=== PATIENT | male | born 1980 | race African-American/Black ===

== ENCOUNTER 2017-03-19 04:06 | Emergency (ER) | payer BC ==
[2017-03-19] MEDS ORDERED: KETOROLAC TROMETHAMINE INJ/PF 30 MG/1 ML SDV IV ONE (04:54)
[2017-03-19] MEDS ORDERED: ONDANSETRON HCL INJ/PF 4 MG/2 ML SDV IV ONE (04:54)
--- NOTE | 2017-03-19 04:56 | ER Document Report ---
ED Medical Screen (RME) - General Chief Complaint: Abdominal Pain Stated Complaint: ABDOMINAL PAIN Time Seen by Provider: 03/19/17 04:50 Notes: Patient is a 36-year-old male that comes emergency department for chief complaint of abdominal pain that started tonight, it is constant, in his mid upper abdomen. He denies nausea or vomiting, he denies flank pain, denies injury, he denies fever or chills. He denies any past medical history including surgeries, medications, or illnesses. TRAVEL OUTSIDE OF THE [place] IN LAST 30 DAYS: No - Related Data Allergies/Adverse Reactions: No Known Allergies Allergy (Verified 07/14/12 12:46) Past Medical History Renal/ Medical History: Denies: Hx Peritoneal Dialysis Past Surgical History: Reports: Hx Orthopedic Surgery - Immunizations Hx Diphtheria, Pertussis, Tetanus Vaccination: Yes Physical Exam - Vital signs Vitals: Temp Pulse Resp BP Pulse Ox 98.6 F 74 18 141/96 H 98 03/19/17 04:08 03/19/17 04:08 03/19/17 04:08 03/19/17 04:08 03/19/17 04:08 - General General appearance: Other - Patient appears mildly uncomfortable - Abdominal Tenderness: Tender - Tender mainly in the right upper quadrant and epigastric area, lower abdomen soft and benign Course - Vital Signs Vital signs: Temp Pulse Resp BP Pulse Ox 98.6 F 74 18 141/96 H 98 03/19/17 04:08 03/19/17 04:08 03/19/17 04:08 03/19/17 04:08 03/19/17 04:08
[2017-03-19 05:41] LABS: ABSOLUTE LYMPHOCYTES (AUTO) 2.5 10^3/uL (0.5-4.7); ABSOLUTE MONOCYTES (AUTO) 0.6 10^3/uL (0.1-1.4); BASOPHILS % (AUTO) 0.2 % (0-2); EOSINOPHILS % (AUTO) 0.5 % (0-6); HEMATOCRIT 39.9 % (37.9-51.0); HEMOGLOBIN 12.9 g/dL (13.5-17.0); HGB HCT DIFFERENCE -1.2; LYMPHOCYTES % (AUTO) 30.8 % (13-45); MEAN CORPUSCULAR HEMOGLOBIN 28.2 pg (27.0-33.4); MEAN CORPUSCULAR HGB CONC 32.4 g/dL (32.0-36.0); MEAN CORPUSCULAR VOLUME 87 fl (80-97); MONOCYTES % (AUTO) 7.3 % (3-13); RED BLOOD COUNT 4.59 10^6/uL (4.35-5.55); RED CELL DISTRIBUTION WIDTH 13.8 % (11.5-14.0); SEGMENTED NEUTROPHILS % (AUTO) 61.2 % (42-78); WHITE BLOOD COUNT 8.2 10^3/uL (4.0-10.5)
[2017-03-19 05:51] LABS: ALANINE AMINOTRANSFERASE 35 U/L (21-72); ALBUMIN 4.1 g/dL (3.5-5.0); ALKALINE PHOSPHATASE 57 U/L (38-126); ANION GAP 11 (5-19); ASPARTATE AMINO TRANSFERASE 24 U/L (17-59); BILIRUBIN,DIRECT 0.3 mg/dL (0.0-0.4); BILIRUBIN,TOTAL 0.5 mg/dL (0.2-1.3); BLOOD UREA NITROGEN 16 mg/dL (7-20); CALCIUM 9.1 mg/dL (8.4-10.2); CARBON DIOXIDE 25 mmol/L (22-30); CHLORIDE 106 mmol/L (98-107); CREATININE RESULT 0.96 mg/dL (0.52-1.25); GLUCOSE 101 mg/dL (75-110); LIPASE 54.4 U/L (23-300); SODIUM 142.4 mmol/L (137-145); TOTAL PROTEIN 7.2 g/dL (6.3-8.2)
[2017-03-19] MEDS ORDERED: NORMAL SALINE 1000 ML 1,000 ML IV ONE ×2 (06:21→06:22)
[2017-03-19] MEDS ORDERED: LIDOCAINE 2% VISCOUS SOLN 20 ML UDCUP PO ONE (07:18)
[2017-03-19] MEDS ORDERED: METOCLOPRAMIDE HCL ORAL SOLN 10 MG/10 ML UDCUP PO ONE (07:18)
[2017-03-19] MEDS ORDERED: MAG HYDROX/AL HYDROX/SIMETH SUSP 30 ML UDCUP PO ONE (07:18)
--- NOTE | 2017-03-19 07:30 | RADIOLOGY REPORT (SQ) ---
EXAM DESCRIPTION: U/S ABDOMEN LIMITED W/O DOP COMPLETED DATE/TIME: 03/19/2017 7:07 am REASON FOR STUDY: epigastric and RUQ pain COMPARISON: 06/23/2008 TECHNIQUE: Dynamic and static grayscale images acquired of the abdomen and recorded on PACS. Edwardo bee selected color Doppler and spectral images recorded. LIMITATIONS: None. FINDINGS: PANCREAS: No masses. Visualized pancreatic duct normal caliber. Obscured tail. LIVER: No masses. Moderate hepatic steatosis. LIVER VASCULATURE: Normal directional flow of the main portal vein and hepatic veins. GALLBLADDER: No stones. Normal wall thickness. No pericholecystic fluid. ULTRASOUND-DETECTED SOUSA'S SIGN: Negative. INTRAHEPATIC DUCTS AND COMMON DUCT: CBD and intrahepatic ducts normal caliber. No filling defects. INFERIOR VENA CAVA: Normal flow. AORTA: No aneurysm. RIGHT KIDNEY: Indeterminate, possible 3.2 cm rounded, hypoechoic, avascular lesion of the right mid kidney ; multiphase contrast CT of the kidneys recommended. PERITONEAL AND RIGHT PLEURAL SPACE: No ascites or effusions. OTHER: No other significant findings. IMPRESSION: Possible 3.2 cm right renal lesion; multiphase contrast CT of the kidneys recommended. Otherwise, unremarkable RIGHT UPPER QUADRANT ULTRASOUND. TECHNICAL DOCUMENTATION: JOB ID: [id number] [employer]- All Rights Reserved
--- NOTE | 2017-03-19 08:58 | ER Document Report ---
ED General - General Chief Complaint: Abdominal Pain Stated Complaint: ABDOMINAL PAIN Time Seen by Provider: 03/19/17 04:50 TRAVEL OUTSIDE OF THE [place] IN LAST 30 DAYS: No - HPI Patient complains to provider of: Mid abdominal pain Notes: Patient coming in for midabdominal pain starting just prior to arrival. Much of the HPI now is limited as that this chart was lost due to an error in her electronic medical record keeping system. - Related Data Allergies/Adverse Reactions: No Known Allergies Allergy (Verified 07/14/12 12:46) Past Medical History - Social History Smoking Status: Unknown if Ever Smoked Family History: Reviewed & Not Pertinent Patient has suicidal ideation: No Patient has homicidal ideation: No Renal/ Medical History: Denies: Hx Peritoneal Dialysis Past Surgical History: Reports: Hx Orthopedic Surgery - Immunizations Hx Diphtheria, Pertussis, Tetanus Vaccination: Yes Review of Systems - Review of Systems Constitutional: No symptoms reported EENT: No symptoms reported Cardiovascular: No symptoms reported Respiratory: No symptoms reported Gastrointestinal: Abdominal pain Genitourinary: No symptoms reported Male Genitourinary: No symptoms reported Musculoskeletal: No symptoms reported Skin: No symptoms reported Hematologic/Lymphatic: No symptoms reported Neurological/Psychological: No symptoms reported Physical Exam - Vital signs Vitals: Temp Pulse Resp BP Pulse Ox 98.6 F 74 18 141/96 H 98 03/19/17 04:08 03/19/17 04:08 03/19/17 04:08 03/19/17 04:08 03/19/17 04:08 Interpretation: Normal - General General appearance: Appears well, Alert - HEENT Head: Normocephalic, Atraumatic Eyes: Normal Pupils: PERRL - Respiratory Respiratory status: No respiratory distress Chest status: Nontender Breath sounds: Normal Chest palpation: Normal - Cardiovascular Rhythm: Regular Heart sounds: Normal auscultation Murmur: No - Abdominal Inspection: Normal Distension: No distension Bowel sounds: Normal Tenderness: Nontender Organomegaly: No organomegaly - Back Back: Normal, Nontender - Extremities General upper extremity: Normal inspection, Nontender, Normal color, Normal ROM , Normal temperature General lower extremity: Normal inspection, Nontender, Normal color, Normal ROM , Normal temperature, Normal weight bearing. No: Seble's sign - Neurological Neuro grossly intact: Yes Cognition: Normal Orientation: AAOx4 Jyothi Coma Scale Eye Opening: Spontaneous Kanaranzi Coma Scale Verbal: Oriented Kanaranzi Coma Scale Motor: Obeys Commands Jyothi Coma Scale Total: 15 Speech: Normal Motor strength normal: LUE, RUE, LLE, RLE Sensory: Normal - Psychological Associated symptoms: Normal affect, Normal mood - Skin Skin Temperature: Warm Skin Moisture: Dry Skin Color: Normal Course - Re-evaluation Re-evalutation: 03/22/17 20:09 Lab results were reviewed with the patient no signs of significant pathology patient does have a slight renal mass that will need to be followed up as outpatient. Patient given pain medication for home The patient presents with abdominal pain without signs of peritonitis or other life-threatening or serious etiology. The patient appears stable for discharge and has been instructed to return immediately if the symptoms worsen in any way, or in 8- 12hr if not improved for re-evaluation. The patient has been instructed to return if the symptoms worsen or change in any way. - Vital Signs Vital signs: Temp Pulse Resp BP Pulse Ox 97.7 F 77 18 120/64 97 03/19/17 09:13 03/19/17 09:13 03/19/17 09:13 03/19/17 09:13 03/19/17 09:13 - Laboratory Result Diagrams: 03/19/17 05:22 03/19/17 05:22 Laboratory results interpreted by me: 03/19/17 05:22 Hgb 12.9 L Discharge - Discharge Clinical Impression: Right renal mass Abdominal pain Qualifiers: Abdominal location: unspecified location Qualified Code(s): R10.9 - Unspecified abdominal pain Condition: Good Disposition: HOME, SELF-CARE Instructions: Abdominal Pain ([facility]), Gastritis ([facility]), Constipation ([facility]), Growth or Mass, Pending Workup ([facility]) Additional Instructions: Follow-up with your primary care physician. Your ultrasound does not show any significant gallbladder disease however there is a mass that is located in her kidney. A lot of times will reduce these tests in the ER we will find masses and nodules that are very nondescriptive further testing will need to be performed to evaluate this mass however this can be done as an outpatient. Do believe that your abdominal pain possibly related to gastritis and possibly related to constipation. Take MiraLAX as prescribed for constipation. Take the Ultram and the Zantac prescribed for pain control. Prescriptions: Polyethylene Glycol 3350 [Miralax Powder 17 gm/Packet] 1 packet PO DAILY #1 pkg Ranitidine HCl [Zantac 75 mg Tablet] 75 mg PO BID #30 tablet Tramadol HCl [Ultram 50 mg Tablet] 50 mg PO ASDIR PRN #30 tablet PRN Reason: Forms: Return to Work
[2017-03-19 09:14] VITALS: BP 120/64
== END 2017-03-19 09:14 | disposition home or self-care (01) ==
LOC: ER 04:06
DX: N28.89 Other specified disorders of kidney and ureter (principal); R10.9 Unspecified abdominal pain
CPT/HCPCS: 99284; 36415; 83690; 85025; 80053; 76705; J3490; J1885; J2405; J7030

== ENCOUNTER 2017-10-28 12:40 | Observation (INO) | payer BC ==
[~2017-10-28 12:40] MED LIST: GLYCOPYRROLATE INJ 0.4 MG/2 ML VIAL ONE; NEOSTIGMINE METHYLSULFATE 10 MG/10 ML VIAL ONE; SUCCINYLCHOLINE CHLORIDE INJ 200 MG/10 ML VIAL ONE; VECURONIUM BROMIDE INJ 10 MG VIAL IV ONE
--- NOTE | 2017-10-28 14:05 | ER Document Report ---
ED Medical Screen (RME) - General Chief Complaint: Abdominal Pain Stated Complaint: ABDOMINAL PAIN Time Seen by Provider: 10/28/17 14:04 Notes: Patient states he was having some right-sided abdominal pain she went to see his primary care physician at the end of last week. At that time a CT scan was done. He states he received a phone call today that stated the CT scan shows appendicitis. He states that he has not had any significant pain for 3 days. He states he had a normal breakfast this morning. On exam however he still does have right lower quadrant tenderness to palpation. The CT report states the patient has enlargement of a retrocecal appendix with some stranding suggestive of appendicitis. TRAVEL OUTSIDE OF THE [place] IN LAST 30 DAYS: No - Related Data Allergies/Adverse Reactions: No Known Allergies Allergy (Verified 10/28/17 12:42) Past Medical History - Social History Chew tobacco use (# tins/day): No Frequency of alcohol use: Rare Drug Abuse: None Renal/ Medical History: Denies: Hx Peritoneal Dialysis Past Surgical History: Reports: Hx Orthopedic Surgery - Immunizations Hx Diphtheria, Pertussis, Tetanus Vaccination: Yes Physical Exam - Vital signs Vitals: Temp Pulse Resp BP Pulse Ox 98.4 F 92 18 157/93 H 97 10/28/17 12:56 10/28/17 12:56 10/28/17 12:56 10/28/17 12:56 10/28/17 12:56 Course - Vital Signs Vital signs: Temp Pulse Resp BP Pulse Ox 98.4 F 92 18 157/93 H 97 10/28/17 12:56 10/28/17 12:56 10/28/17 12:56 10/28/17 12:56 10/28/17 12:56
[2017-10-28 14:33] LABS: ABSOLUTE BASOPHILS # (AUTO) 0.1 10^3/uL (0.0-0.2); ABSOLUTE EOSINOPHILS # (AUTO) 0.1 10^3/uL (0.0-0.6); ABSOLUTE LYMPHOCYTES (AUTO) 2.8 10^3/uL (0.5-4.7); ABSOLUTE MONOCYTES (AUTO) 0.5 10^3/uL (0.1-1.4); ABSOLUTE NEUT (AUTO) 3.1 10^3/uL (1.7-8.2); BASOPHILS % (AUTO) 0.9 % (0-2); HEMATOCRIT 40.5 % (37.9-51.0); HEMOGLOBIN 13.4 g/dL (13.5-17.0); LYMPHOCYTES % (AUTO) 43.6 % (13-45); MEAN CORPUSCULAR HEMOGLOBIN 28.2 pg (27.0-33.4); MEAN CORPUSCULAR HGB CONC 33.2 g/dL (32.0-36.0); MEAN CORPUSCULAR VOLUME 85 fl (80-97); MONOCYTES % (AUTO) 7.4 % (3-13); PLATELET COUNT 301 10^3/uL (150-450); RED BLOOD COUNT 4.76 10^6/uL (4.35-5.55); RED CELL DISTRIBUTION WIDTH 13.5 % (11.5-14.0); SEGMENTED NEUTROPHILS % (AUTO) 47.1 % (42-78); TOTAL CELLS COUNTED % (AUTO) 100 %; WHITE BLOOD COUNT 6.5 10^3/uL (4.0-10.5)
[2017-10-28 14:49] LABS: AMORPHOUS SEDIMENT,URINE 1+ /HPF; APPEARANCE,URINE CLOUDY; BILIRUBIN,URINE NEGATIVE (NEGATIVE); COLOR,URINE YELLOW; GLUCOSE, URINE NEGATIVE (NEGATIVE); KETONES,URINE NEGATIVE (NEGATIVE); LEUKOCYTE ESTERASE,URINE NEGATIVE (NEGATIVE); NITRITE,URINE NEGATIVE (NEGATIVE); PROTEIN,URINE NEGATIVE (NEGATIVE); URINE SPECIFIC GRAVITY 1.042; UROBILINOGEN,URINE NEGATIVE mg/dL (<2.0)
--- NOTE | 2017-10-28 14:50 | ER Document Report ---
ED General - General Chief Complaint: Abdominal Pain Stated Complaint: ABDOMINAL PAIN Time Seen by Provider: 10/28/17 14:04 Mode of Arrival: Ambulatory Information source: Patient Notes: 37-year-old male presents with complaints of right lower quadrant abdominal pain of 3 day duration. Patient was seen at primary care office 3 days prior they offered a CT at that time he deferred. Patient went back today and was noted to have continued pain CT was performed and a diagnosis of acute appendicitis retrocecal was noted by read. Patient was sent in to be evaluated. Patient notes his pain has been waxing and waning TRAVEL OUTSIDE OF THE [place] IN LAST 30 DAYS: No - HPI Onset: Other Onset/Duration: Persistent, Waxing and waning Quality of pain: Sharp Severity: Mild Pain Level: 1 Associated symptoms: Nausea Exacerbated by: Denies Relieved by: Denies Similar symptoms previously: Yes Recently seen / treated by doctor: Yes - Related Data Allergies/Adverse Reactions: No Known Allergies Allergy (Verified 10/28/17 12:42) Past Medical History - Social History Smoking Status: Former Smoker Cigarette use (# per day): No Chew tobacco use (# tins/day): No Smoking Education Provided: No Frequency of alcohol use: Rare Drug Abuse: None Family History: Reviewed & Not Pertinent Patient has suicidal ideation: No Patient has homicidal ideation: No Renal/ Medical History: Denies: Hx Peritoneal Dialysis Past Surgical History: Reports: Hx Orthopedic Surgery - Immunizations Hx Diphtheria, Pertussis, Tetanus Vaccination: Yes Review of Systems - Review of Systems Notes: REVIEW OF SYSTEMS: CONSTITUTIONAL : Denies fever, chills, or sweats. Denies recent illness. EENT: Denies eye, ear, throat, or mouth pain or symptoms. Denies nasal or sinus congestion or discharge. Denies throat, tongue, or mouth swelling or difficulty swallowing. CARDIOVASCULAR: Denies chest pain. Denies palpitations or racing or irregular heart beat. Denies ankle edema. RESPIRATORY: Denies cough, cold, or chest congestion. Denies shortness of breath, difficulty breathing, or wheezing. GASTROINTESTINAL: Admits to right lower quadrant abdominal pain. GENITOURINARY: Denies difficulty urinating, painful urination, burning, frequency, blood in urine, or discharge. MUSCULOSKELETAL: Denies back or neck pain or stiffness. Denies joint pain or swelling. SKIN: Denies rash, lesions or sores. HEMATOLOGIC : Denies easy bruising or bleeding. LYMPHATIC: Denies swollen, enlarged glands. NEUROLOGICAL: Denies confusion or altered mental status. Denies passing out or loss of consciousness. Denies dizziness or lightheadedness. Denies headache. Denies weakness or paralysis or loss of use of either side. Denies problems with gait or speech. Denies sensory loss, numbness, or tingling. Denies seizures. PSYCHIATRIC: Denies anxiety or stress. Denies depression, suicidal ideation, or homicidal ideation. ALL OTHER SYSTEMS REVIEWED AND NEGATIVE. Dictation was performed using [employer] recognition software PHYSICAL EXAMINATION: GENERAL: Well-appearing, well-nourished and in no acute distress. HEAD: Atraumatic, normocephalic. EYES: Pupils equal round and reactive to light, extraocular movements intact, sclera anicteric, conjunctiva are normal. ENT: Nares patent, oropharynx clear without exudates. Moist mucous membranes. NECK: Normal range of motion, supple without lymphadenopathy LUNGS: Breath sounds clear to auscultation bilaterally and equal. No wheezes rales or rhonchi. HEART: Regular rate and rhythm without murmurs ABDOMEN: Soft, tender in the right lower quadrant with mild guarding Musculoskeletal: Normal range of motion, no pitting or edema. No cyanosis. NEUROLOGICAL: Cranial nerves grossly intact. Normal speech, normal gait. Normal sensory, motor exams PSYCH: Normal mood, normal affect. SKIN: Warm, Dry, normal turgor, no rashes or lesions noted. Physical Exam - Vital signs Vitals: Temp Pulse Resp BP Pulse Ox 98.4 F 92 18 157/93 H 97 10/28/17 12:56 10/28/17 12:56 10/28/17 12:56 10/28/17 12:56 10/28/17 12:56 Course - Re-evaluation Re-evalutation: 10/28/17 15:16 Patient's presentation and imaging was concerning for appendicitis, his pain is a little bit higher than I would expect but given that it is retrocecal this may be the reasoning for this. He does not have an elevated white count, he is afebrile at this time, his pain has been consistent and worsening therefore I do have high suspicion for appendicitis. Dr. Wade was consulted who will take the patient to the OR - Vital Signs Vital signs: Temp Pulse Resp BP Pulse Ox 98.4 F 92 18 157/93 H 97 10/28/17 12:56 10/28/17 12:56 10/28/17 12:56 10/28/17 12:56 10/28/17 12:56 - Laboratory Result Diagrams: 10/28/17 14:19 10/28/17 14:19 Laboratory results interpreted by me: 10/28/17 10/28/17 14:19 14:19 Hgb 13.4 L ALT 97 H - Diagnostic Test Radiology reviewed: Reports reviewed - On the report has been reviewed no imaging is noted Discharge - Discharge Clinical Impression: Appendicitis Qualifiers: Appendicitis type: acute appendicitis Acute appendicitis type: with localized peritonitis Qualified Code(s): K35.3 - Acute appendicitis with localized peritonitis Abdominal pain Qualifiers: Abdominal location: right lower quadrant Qualified Code(s): R10.31 - Right lower quadrant pain Condition: Stable Disposition: ADMITTED INPATIENT Admitting Provider: Surgicalist Unit Admitted: Surgical Floor
[2017-10-28 14:59] LABS: ALANINE AMINOTRANSFERASE 97 U/L (21-72); ALBUMIN 4.3 g/dL (3.5-5.0); ALKALINE PHOSPHATASE 74 U/L (38-126); ANION GAP 10 (5-19); ASPARTATE AMINO TRANSFERASE 50 U/L (17-59); BILIRUBIN,DIRECT 0.4 mg/dL (0.0-0.4); BILIRUBIN,TOTAL 0.5 mg/dL (0.2-1.3); BLOOD UREA NITROGEN 17 mg/dL (7-20); CALCIUM 10.2 mg/dL (8.4-10.2); CARBON DIOXIDE 29 mmol/L (22-30); CHLORIDE 104 mmol/L (98-107); GLUCOSE 83 mg/dL (75-110); POTASSIUM 4.3 mmol/L (3.6-5.0); SODIUM 143.4 mmol/L (137-145); TOTAL PROTEIN 7.5 g/dL (6.3-8.2)
[2017-10-28] MEDS ORDERED: NORMAL SALINE 1000 ML 1,000 ML IV ONE (15:15)
[2017-10-28] MEDS ORDERED: FENTANYL CITRATE INJ/PF 100 MCG/2 ML AMPUL ONE ×3 (15:35→17:54)
[2017-10-28] MEDS ORDERED: LIDOCAINE 2% INJ-PF (20 MG/ML) 10 ML AMPUL ONE (15:35)
[2017-10-28] MEDS ORDERED: DEXAMETHASONE SOD PHOSPHATE INJ 4 MG/1 ML VIAL ONE (15:36)
[2017-10-28] MEDS ORDERED: MIDAZOLAM 2 MG/2 ML INJ ONE (15:36)
[2017-10-28] MEDS ORDERED: ONDANSETRON HCL INJ/PF 4 MG/2 ML SDV ONE (15:36)
[2017-10-28] MEDS ORDERED: PROPOFOL INJ 200 MG/20 ML VIAL IV ONE (15:36)
[2017-10-28] MEDS ORDERED: ACETAMINOPHEN 100 ML IV ONE (15:41)
[2017-10-28] MEDS ORDERED: BUPIVACAINE HCL 0.25 % INJ/PF (2.5 MG/1 ML) 30 ML VIAL ONE (15:54)
[2017-10-28] MEDS ORDERED: AMPICILLIN SOD/SULBACTAM 1.5 GM VIAL ONE (16:12)
--- NOTE | 2017-10-28 16:24 | PDOC H&P ---
History of Present Illness Admission Date/PCP: 10/28/17 14:56 CRISTIAN ENNIS, PROOF SORTER-C History of Present Illness: FLORENCE PEÑA is a 37 year old male Seen via the emergency department this morning for acute appendicitis. According the patient he has had approximately a week and a half history of abdominal pain mostly right sided localized to the back. He was seen in emergency department at [facility] on 10/17/2017. He had an area of heterogeneity of the mid pole of the right kidney. Follow-up was recommended. She continued to have abdominal pain was seen last week at [facility] where he was found to have persisting abdominal tenderness. He had a CT scan of the abdomen and pelvis performed on Saturday which was interpreted having findings consistent with a retrocecal appendicitis. The patient was contacted today on an outpatient basis the findings and sent to the emergency department. According the patient he denies nausea vomiting or anorexia. He actually had breakfast this morning. He denies dysuria. Patient denies history of trauma or history of gastrointestinal problems Past Medical History Cardiac Medical History: Reports: Hypertension, Other - Anemia Past Surgical History Past Surgical History: Reports: Orthopedic Surgery Social History Smoking Status: Former Smoker Past Social History Note: Remote history of heavy smoking Family History Family History: Reviewed & Not Pertinent Parental Family History Reviewed: Yes Children Family History Reviewed: Yes Sibling(s) Family History Reviewed.: Yes Medication/Allergy Home Medications: No Home Medications 10/28/17 Allergies/Adverse Reactions: No Known Allergies Allergy (Verified 10/28/17 12:42) Review of Systems Constitutional: ABSENT: chills, fever(s), headache(s), weight gain, weight loss Eyes: ABSENT: visual disturbances Ears: ABSENT: hearing changes Cardiovascular: PRESENT: as per HPI. ABSENT: chest pain, dyspnea on exertion, edema, orthropnea, palpitations Respiratory: ABSENT: cough, hemoptysis Genitourinary: ABSENT: dysuria, hematuria Musculoskeletal: ABSENT: joint swelling Physical Exam Vital Signs: Temp Pulse Resp BP Pulse Ox 98.4 F 92 18 157/93 H 97 10/28/17 12:56 10/28/17 12:56 10/28/17 12:56 10/28/17 12:56 10/28/17 12:56 General appearance: PRESENT: no acute distress Head exam: PRESENT: normocephalic Eye exam: PRESENT: EOMI Mouth exam: PRESENT: dry mucosa Neck exam: PRESENT: full ROM Respiratory exam: PRESENT: clear to auscultation yazmin Cardiovascular exam: PRESENT: RRR Pulses: PRESENT: normal carotid pulses, normal radial pulses GI/Abdominal exam: PRESENT: other - Minimally tender right side and right flank ; no peritoneal signs no rigidity. Rectal exam: PRESENT: deferred Musculoskeletal exam: PRESENT: full ROM Neurological exam: PRESENT: alert, altered, awake Skin exam: PRESENT: intact Assessment & Plan - Diagnosis (1) Appendicitis Qualifiers: Appendicitis type: acute appendicitis Acute appendicitis type: with localized peritonitis Qualified Code(s): K35.3 - Acute appendicitis with localized peritonitis Is this a current diagnosis for this admission?: Yes Plan: Based on patient's clinical history, and radiographic findings, the patient has early retrocecal appendicitis. We discussed management options. He would like to have his appendix removed and I think this is a reasonable expectation. Plan: 1. Keep n.p.o. and IV fluids intravenous antibiotics and set patient up for laparoscopic, possible open appendectomy. I explained to the patient the mechanism of surgery, as well as an explosion risk benefits and alternatives. I believe understands and agrees to proceed. - Time Time Spent: 30 to 50 Minutes Critical Time spent with patient: Less than 15 minutes Medications reviewed and adjusted accordingly: Yes Anticipated discharge: Home - Inpatient Certification Based on my medical assessment, after consideration of the patient's comorbidities, presenting symptoms, or acuity I expect that the services needed warrant INPATIENT care.: Yes I certify that my determination is in accordance with my understanding of Medicare's requirements for reasonable and necessary INPATIENT services [42 CFR 412.3e].: Yes Medical Necessity: Failure to Improve With Outpatient Therapy, Need for Pain Control, Need for IV Antibiotics, Need for Surgery
[2017-10-28] MEDS ORDERED: FENTANYL CITRATE INJ/PF 100 MCG/2 ML AMPUL IV PRN ×3 (16:52)
[2017-10-28] MEDS ORDERED: OXYCODONE-ACETAMINOPHEN 5-325 MG TABLET PO PRN ×2 (16:52)
[2017-10-28] MEDS ORDERED: DIPHENHYDRAMINE HCL 50 MG/ML VIAL IV PRN (16:52)
[2017-10-28] MEDS ORDERED: MEPERIDINE HCL/PF INJ 25 MG/1 ML DISP.SYRIN IV PRN (16:52)
[2017-10-28] MEDS ORDERED: PROMETHAZINE HCL INJ 25 MG/1 ML VIAL IV PRN ×2 (16:52)
[2017-10-28] MEDS ORDERED: MORPHINE SULFATE 10 MG/ML INJ IV PRN (16:52)
--- NOTE | 2017-10-28 17:27 | Operative Report ---
Operative Report DATE OF SURGERY: 10/28/17 PREOPERATIVE DIAGNOSIS: Acute appendicitis POSTOPERATIVE DIAGNOSIS: Same OPERATION: Laparoscopic removal of retrocecal appendicitis SURGEON: NISHANT ALEJANDRO ANESTHESIA: GA TISSUE REMOVED OR ALTERED: 1 appendix COMPLICATIONS: None ESTIMATED BLOOD LOSS: 25 cc INTRAOPERATIVE FINDINGS: See below PROCEDURE: The patient was taken to the preop holding her to the main operating room where general anesthesia was induced. The patient voided prior to general anesthesia. Was exposed, pubic hair shaved, and the abdomen prepped and draped in sterile fashion and instrumentation set up for laparoscopic appendectomy Surgical plan and surgical timeout were conducted. The skin was anesthetized for 3 port appendectomy, including the super umbilical area, the suprapubic area in the left lower quadrant all with 1% lidocaine plain. Small vertically oriented incision was made just above the umbilicus, and a varies needle inserted the peritoneal cavity and pneumoperitoneum was established. The Veress needle was removed, and a 5 mm port was inserted and a 5 mm flexible viewing scope was inserted. There was no evidence of vascular or visceral injury. Under direct visualization 2 additional ports were placed one 5 mm the suprapubic position and one 12 mm left lower quadrant. Intraoperative findings are significant for no perforation, no stool and no blood. Visualization of the right lower quadrant revealed the terminal ileum to be used to the right lateral pelvic wall. The patient placed in Trendelenburg position and airplane to the left side with the right side up, we placed traction on the ileocecal tissue and divided with sharp scissors the ileum which should adhesed to the lateral sidewall. This enabled us to open the recess between the cecum and the terminal ileum we now could identify the distal third of the appendix which was shriveled into a small mass. A combination of blunt, traction, and LigaSure dissection, we are able to tease the appendix away from surrounding anatomic structures. This required a fair amount of tension due to the density in the adhesions. Eventually we had the appendix suspended solely on its base. Photos were taken of the appendix. The mesoappendix had been taken down between LigaSure and gentle traction. We now divided the appendix at its base with a single firing of the Endo JAMES 45 mm blue load stapler. The specimen was placed in Endobag and brought to the patient to the left lower quadrant port site We returned the peritoneal cavity checked for bleeding there was only minimal disease from the retroperitoneal dissection. I chose not to place a drain. The staple line was intact and not bleeding we felt the operation was complete. Patient was leveled out again inspection made to the peritoneal cavity no pathologic findings identified otherwise. Ports removed under direct visualization pneumoperitoneum evacuated wounds closed with 3-0 Vicryl benzoin and Steri-Strips. Patient tolerated procedure well, extubated, taken recovery in stable condition
[2017-10-28] MEDS: OXYCODONE-ACETAMINOPHEN 5-325 MG TABLET PO PRN (20:21)
[2017-10-29] MEDS: AMPICILLIN SODIUM/SULBACTAM NA 3 GM in NORMAL SALINE 100 ML IV SCH ×2 (02:06→09:03)
[2017-10-29] MEDS: OXYCODONE-ACETAMINOPHEN 5-325 MG TABLET PO PRN ×2 (02:17→09:02)
[2017-10-29 08:38] VITALS: BP 103/61
--- NOTE | 2017-10-29 11:21 | PDOC PROGRESS REPORT ---
Subjective Progress Note for:: 10/29/17 Subjective:: No c/o Reason For Visit: ACUTE APPENDICITIS Physical Exam Vital Signs: Temp Pulse Resp BP Pulse Ox 98.1 F 74 20 103/61 96 10/29/17 08:00 10/29/17 08:00 10/29/17 08:00 10/29/17 08:00 10/29/17 08:00 Intake & Output 10/28/17 10/29/17 10/30/17 06:59 06:59 06:59 Intake Total 2600 Output Total 1010 Balance 1590 Weight 107.2 kg General appearance: PRESENT: no acute distress Respiratory exam: PRESENT: clear to auscultation yazmin Cardiovascular exam: PRESENT: RRR GI/Abdominal exam: PRESENT: hypoactive bowel sounds, soft Assessment & Plan - Plan Summary Plan Summary: A/ POD #1 after laparoscopic appendecotmy Patient doing well VSS, AF Abdomen soft P/ Home today F/U in the General Surgery office to see DIEGO Collins in 1 week Resume regular diet Activities as tolerated Return to work in 2 days Shower immediately, bathe in 2 weeks
--- NOTE | 2017-10-29 14:19 | DISCHARGE SUMMARY E ---
Discharge Summary NAME: FLORENCE PEÑA : 1980 AGE: 37Y ADMITTED: 10/28/2017 DISCHARGED: 10/29/2017 FINAL DIAGNOSIS: Acute appendicitis. PROCEDURE: October 28 - the patient underwent a laparoscopic appendectomy. COMPLICATIONS: None. HOSPITAL COURSE: This is a healthy 37-year-old -Thai male who presented to the hospital with a right lower quadrant abdominal pain. He was found to have an acute appendicitis on CAT scan. The patient was taken to surgery and underwent uneventful laparoscopic appendectomy. His postop course was uneventful. On the day of discharge, the patient had no complaints, tolerating p.o. well. He was afebrile, and his physical abdominal exam was unremarkable. DISCHARGE ORDERS: The patient was discharged to go home on October 29. He was given a followup appointment in 1 week in the surgery office with the [facility]. The patient is given Tylenol as needed by mouth for pain, can shower immediately, and bathe in 2 weeks. Resume activities as tolerated. Return to work in 2 days and resume a regular diet. DICTATING PHYSICIAN: PREET AUGUSTIN M.D. [id number] PHY#: [id number] ID: [id number] JOB#: [id number] ACCT: [id number] cc:Delores JOHNSON MD, M.D. FRANK KLANDUCH, M.D. > MTDD
== END 2017-10-29 11:50 | disposition home or self-care (01) ==
LOC: ER 12:40 → EH 14:56 → INTOOBSV 14:56 → 2N 18:24
PROVIDERS: ATTEND Surgery
PROC: 0DTJ4ZZ Resection of Appendix, Percutaneous Endoscopic Approach (ICD-10-PCS; principal; 2017-10-28 16:00)
DX: K35.3 Acute appendicitis with localized peritonitis (principal); Z87.891 Personal history of nicotine dependence
CPT/HCPCS: 99285; 36415; 85025; 80053; 81001; 88304 ×2; 44970; J2250; J1100; J3010; J0295 ×2; J3490 ×2; J0330; J2405; J7030; J2704; J0131; 840